=== PATIENT | female | born 2000 | race Caucasian/White ===

== ENCOUNTER 2021-06-11 18:58 | Emergency (ER) | payer OTHER ==
[~2021-06-11] VITALS: Ht 167.6 cm; Wt 83.9 kg
[2021-06-11] MEDS ORDERED: IBUPROFEN 800800 M1 PO (20:58)
[2021-06-11] MEDS ORDERED: AUGMENTIN 875-1 EACH PO (20:58)
[2021-06-11 21:59] VITALS: BP 115/80
== END 2021-06-11 21:59 | disposition home or self-care (01) ==
LOC: M.ERS 18:58
DX: S61.232A Puncture wound without foreign body of right middle finger without damage to nail, initial encounter (principal); W54.0XXA Bitten by dog, initial encounter; Y93.89 Activity, other specified; Y92.89 Other specified places as the place of occurrence of the external cause; Y99.9 Unspecified external cause status